=== PATIENT | male | born 1950 | race Caucasian/White ===

== ENCOUNTER 2023-10-16 14:28 | Outpatient (CLI) | payer MEDICARE, OTHER | END 2023-10-16 14:29 | disposition home or self-care (01) | LOC: CSHRAD 14:28 | PROVIDERS: ATTEND Internal Medicine Rheumatology | DX: M25.541 Pain in joints of right hand (principal); M25.542 Pain in joints of left hand; M25.742 Osteophyte, left hand; M25.741 Osteophyte, right hand; M25.841 Other specified joint disorders, right hand ==